=== PATIENT | female | born 1985 ===

== ENCOUNTER 2016-12-31 18:51 | Emergency (ER) | payer SELFPAY ==
[2016-12-31 18:52] VITALS: BMI 25.0
[2016-12-31 19:33] VITALS: BP 154/95; PULSE 105; RESP 20; TEMP 98.7; O2SAT 100
[2016-12-31] MEDS ORDERED: Sodium Chloride 0.9% 1,000 ML IV STA (20:13)
--- NOTE | 2016-12-31 20:27 | ED PDOC ---
HPI: Female Pain Time Seen by Provider: 12/31/16 19:44 Chief Complaint (Nursing): Female Genitourinary Chief Complaint (Provider): Female Genitourinary History Per: Patient History/Exam Limitations: no limitations Onset/Duration Of Symptoms: Days (x1) Current Symptoms Are (Timing): Still Present Additional Complaint(s): Kay Foss is a 31 year old female with previous medical history of hypertension, who presents to the emergency department with a complaint of lower abdominal pain associated with chills, facial pain, headache, and vaginal bleeding with small blood clots ongoing for 1 day since taking prescribed Cytotec at 1440 from clinic status post recent dilation and curettage after recent termination. Denied any fever, nausea, vomiting, diarrhea, cough, rash, swelling, throat pain or shortness of breath. Patient stated symptoms have improved upon arrival to ED and is currently on Doxycycline and Ibuprofen from procedure. PMD: none provided Past Medical History Reviewed: Historical Data, Nursing Documentation, Vital Signs Vital Signs: Last Vital Signs Temp 98.7 F 12/31/16 19:31 Pulse 105 H 12/31/16 19:31 Resp 20 12/31/16 19:31 BP 154/95 H 12/31/16 19:31 Pulse Ox 100 12/31/16 19:31 - Medical History PMH: HTN, Migraine - Surgical History Surgical History: - Family History Family History: States: Diabetes, Hypertension - Home Medications Home Medications: Ambulatory Orders Medication Instructions Recorded Cyclobenzaprine [Flexeril] 5 mg PO Q8 PRN #15 tab 06/25/16 Naproxen [Naprosyn] 1 tab PO BID PRN #30 tab 06/25/16 Omeprazole Magnesium [Prilosec Otc] 20 mg PO DAILY #30 tcp 06/25/16 - Allergies Allergies/Adverse Reactions: Allergies Allergy/AdvReac Type Severity Reaction Status Date / Time No Known Allergies Allergy Verified 02/27/16 21:31 Review of Systems ROS Statement: Except As Marked, All Systems Reviewed And Found Negative Constitutional: Positive for: Chills. Negative for: Fever ENT: Negative for: Throat Pain Respiratory: Negative for: Cough, Shortness of Breath Gastrointestinal: Positive for: Abdominal Pain (lower). Negative for: Nausea, Vomiting, Diarrhea Genitourinary Female: Positive for: Vaginal Bleeding (with small blood clots) Skin: Negative for: Rash, Other (swelling) Neurological: Positive for: Headache, Other (facial pain) Physical Exam - Reviewed Nursing Documentation Reviewed: Yes Vital Signs Reviewed: Yes - Physical Exam Appears: Positive for: Well, Non-toxic, No Acute Distress Head Exam: Positive for: ATRAUMATIC, NORMAL INSPECTION, NORMOCEPHALIC Skin: Positive for: Normal Color Cardiovascular/Chest: Positive for: Regular Rate, Rhythm Respiratory: Positive for: Normal Breath Sounds. Negative for: Crackles, Rales , Rhonchi, Wheezing, Respiratory Distress Gastrointestinal/Abdominal: Positive for: Soft, Tenderness (suprapubic). Negative for: Normal Exam, Guarding Neurologic/Psych: Positive for: Alert, software database architect II-XII, Oriented - Laboratory Results Result Diagrams: 12/31/16 20:45 - ECG O2 Sat by Pulse Oximetry: 100 (RA) Pulse Ox Interpretation: Normal Medical Decision Making Medical Decision Making: Initial Impression: Abdominal pain S/P recent termination Initial Plan: * BETA-HCG * Urine dipstick * Urine * Labs * NS 1,000ml IV per 1,000mls/hr * Urinalysis * US transvag Time: 2151 --Labs: no significant abnormality noted. --US transvag FINDINGS: Uterus/cervix: Measured at 8.4 x 4.5 x 4.6 cm. Normal endometrial stripe thickness, measured at approximately 7 mm. 7 mm hypoechoic focus in the anterior lower uterine segment , question related to fibroid. Right ovary: Measured at 2.6 x 2.3 x 1.2 cm. Doppler blood flow. Left ovary: Measured at 2.2 x 2.3 x 2.2 cm. Doppler blood flow. Free fluid: No free fluid. IMPRESSION: 7 mm hypoechoic focus in the anterior lower uterine segment, question related to fibroid. Otherwise, no acute sonographic abnormality. Time: 2199 --Upon provider reevaluation, patient is medically stable and requires no further treatment in the ED at this time. Patient will be discharged home and advised to continue with medications. Counseling was provided and all questions were answered regarding diagnosis and need for follow up [facility]. There is agreement to discharge plan. Return if symptoms persist or worsen. Clinical Impression: Elective Scribe Attestation: Documented by Brigida Jiang, acting as a scribe for Otto Lincoln MD. Provider Scribe Attestation: All medical record entries made by the Scribe were at my direction and personally dictated by me. I have reviewed the chart and agree that the record accurately reflects my personal performance of the history, physical exam, medical decision making, and the department course for this patient. I have also personally directed, reviewed, and agree with the discharge instructions and disposition. Disposition - Clinical Impression Clinical Impression: Elective - Patient ED Disposition Is Patient to be Admitted: No Doctor Will See Patient In The: Office Counseled Patient/Family Regarding: Studies Performed, Diagnosis, Need For Followup - Disposition Disposition: Routine/Home Disposition Time: 22:00 Condition: STABLE Additional Instructions: Follow up with your Gynecology clinic in 1-2 days Drink adequate fluids and take Ibuprofen as prescribed Continue al medications prescribed Return for any worsening in your condition Instructions: Misoprostol (By mouth), Dilation and Curettage (GEN) Forms: [employer] (Hungarian) Print Language: CITIZEN OF [place]
[2016-12-31 20:49] LABS: BASO # 0.1 K/uL (0.0-0.2); BASO % 0.5 % (0.0-2.0); EOS % 0.2 % (0.0-4.0); HEMATOCRIT 38.8 % (34.0-47.0); LYMPH # 2.4 K/uL (1.0-4.3); LYMPH % 20.9 % (20.0-40.0); MEAN CELL VOLUME 87.4 fl (81.0-99.0); MEAN CORPUSCULAR HEMOGLOBIN 28.4 pg (27.0-31.0); MEAN CORPUSCULAR HGB CONC 32.5 g/dL (33.0-37.0); MEAN PLATELET VOLUME 7.9 fl (7.2-11.7); MONO # 0.8 K/uL (0.0-0.8); MONO % 6.6 % (0.0-10.0); NEUT # 8.2 K/uL (1.8-7.0); NEUT % 71.8 % (50.0-75.0); RED CELL DISTRIBUTION WIDTH 13.4 % (11.5-14.5); WHITE BLOOD COUNT 11.4 K/uL (4.8-10.8)
--- NOTE | 2016-12-31 21:53 | US ---
EXAM: US Pelvis, Transabdominal CLINICAL HISTORY: 31 years old, female; Pain; Other: Cramping; Additional info: Abd pain S/P top TECHNIQUE: Real-time transabdominal pelvic ultrasound (complete) with image documentation. COMPARISON: No relevant prior studies available. FINDINGS: Uterus/cervix: Measured at 8.4 x 4.5 x 4.6 cm. Normal endometrial stripe thickness, measured at approximately 7 mm. 7 mm hypoechoic focus in the anterior lower uterine segment, question related to fibroid. Right ovary: Measured at 2.6 x 2.3 x 1.2 cm. Doppler blood flow. Left ovary: Measured at 2.2 x 2.3 x 2.2 cm. Doppler blood flow. Free fluid: No free fluid. IMPRESSION: 7 mm hypoechoic focus in the anterior lower uterine segment, question related to fibroid. Otherwise, no acute sonographic abnormality.
[2016-12-31 22:13] LABS: RBC URINE 82 /hpf (0-3); URINE BILIRUBIN NEGATIVE (NEGATIVE); URINE BLOOD MODERATE (NEGATIVE); URINE COLOR STRAW (YELLOW); URINE GLUCOSE (UA) NEG (Normal); URINE KETONE 20 mg/dL (NEGATIVE); URINE LEUKOCYTE ESTERASE NEG Leu/uL (Negative); URINE PROTEIN NEGATIVE (NEGATIVE); URINE UROBILINOGEN 0.2-1.0 mg/dL (0.2-1.0); WBC URINE 1 /hpf (0-5)
== END 2016-12-31 22:43 | disposition home or self-care (01) ==
LOC: H.ER 18:51
DX: O03.9 Complete or unspecified spontaneous abortion without complication (principal)
CPT/HCPCS: 76830; 81003; 84702; 85025; 99283; J7040